=== PATIENT | female | born 1985 | race Caucasian/White ===

== ENCOUNTER → 2017-12-19 | Outpatient (CLI) | payer OTHER, MEDICAID ==
[~2017-12-19] MED LIST: AMITRIPTYLINE H10 M3 PO; AMOXICILLIN 50500 MG PO; AMOXICILLIN500 M1 PO; BACTRIM DS TAB1 EACH PO; CELEXA PO; CLEOCIN HCL150 MG PO; CLONAZEPAM 1 MG1 M1 PO; COLACE 100 MG100 MG PO; DESYREL50 MG; HYDROCODONE-AP1 EAC6 PO; IBUPROFEN 800800 M1 PO; NOHOMEMEDICATIONS; NORCO 5-325 TA1 EACH PO; PHENAZOPYRIDIN200 MG PO; PRILOSEC 20 MG20 MG PO; PROMETHAZINE-C120 ML PO; TRAMADOL 50 MG50 MG PO; TRAZODONE 150150 M1 PO; ULTRAM 50MG TAB50 MG PO; WELLBUTRIN 100100 MG; WELLBUTRIN100 MG PO; XANAX 0.5 MG0.5 M1; ZOLOFT25 MG PO
== END ==
LOC: M.ULTRA 11:30
DX: Q51.3 Bicornate uterus (principal); N63.10 Unspecified lump in the right breast, unspecified quadrant; N60.01 Solitary cyst of right breast

== ENCOUNTER 2018-09-03 12:14 | Emergency (ER) | payer OTHER, MEDICAID ==
[~2018-09-03] VITALS: Ht 162.6 cm; Wt 78.5 kg
[2018-09-03 12:16] VITALS: BP 113/73
[2018-09-03] MEDS ORDERED: WELLBUTRIN 100100 MG PO (12:21)
[2018-09-03] MEDS ORDERED: PRAZOSIN 1 MG CA1 M1 PO (12:21)
[2018-09-03] MEDS ORDERED: ZOLOFT25 MG PO (12:22)
[2018-09-03] MEDS ORDERED: PRILOSEC 20 MG20 MG PO (12:22)
[2018-09-03] MEDS ORDERED: SEROQUEL 25 MG25 M1 PO (12:22)
[2018-09-03] MEDS ORDERED: HYDROCODONE-AP1 EAC6 PO (12:36)
[2018-09-03] MEDS ORDERED: PENICILLIN V P500 MG PO (12:36)
== END 2018-09-03 12:46 | disposition home or self-care (01) ==
LOC: M.ERS 12:14
DX: K08.89 Other specified disorders of teeth and supporting structures (principal); F17.210 Nicotine dependence, cigarettes, uncomplicated; Z88.6 Allergy status to analgesic agent; Z98.890 Other specified postprocedural states

== ENCOUNTER 2018-09-10 01:01 | Emergency (ER) | payer OTHER, MEDICAID ==
[~2018-09-10] VITALS: Ht 162.6 cm; Wt 65.8 kg
[~2018-09-10 01:01] MED LIST changes: +PENICILLIN V P500 MG PO; +PRAZOSIN 1 MG CA1 M1 PO; +SEROQUEL 25 MG25 M1 PO; +WELLBUTRIN 100100 MG PO
[2018-09-10] MEDS ORDERED: NORCO 5-325 TA1 EACH PO (01:48)
[2018-09-10 02:25] VITALS: BP 123/80
== END 2018-09-10 02:25 | disposition home or self-care (01) ==
LOC: M.ERS 01:01
DX: K08.89 Other specified disorders of teeth and supporting structures (principal)

== ENCOUNTER 2018-10-20 20:34 | Emergency (ER) | payer OTHER ==
[~2018-10-20] VITALS: Ht 162.6 cm; Wt 66.8 kg
[2018-10-20 21:32] LABS: AMP/METHAMP POSITIVE (Negative); BARBITURATES Negative (Negative); BENZODIAZEPINES Negative (Negative); COCAINE Negative (Negative); METHADONE Negative (Negative); OPIATES POSITIVE (Negative); PCP Negative (Negative); THC Negative (Negative)
[2018-10-20 21:32] LABS: ABSOLUTE BASOPHILS 0.1 thou/uL (0.0-0.2); ABSOLUTE EOSINOPHILS 0.2 thou/uL (0.0-0.7); ABSOLUTE LYMPHOCYTES 2.7 thou/uL (0.8-5.3); ABSOLUTE MONOCYTES 0.6 thou/uL (0.0-1.2); ABSOLUTE NEUTROPHILS 6.6 thou/uL (1.6-8.1); BASOPHILS 0.8 %; EOSINOPHILS 2.1 %; HEMATOCRIT 41.3 % (37.0-47.0); HEMOGLOBIN 14.2 gm/dL (12.0-15.0); LYMPHOCYTES 26.3 %; MCH 31.9 pg (26.0-34.0); MCHC 34.3 g/dL (28.0-37.0); MCV 93.1 fL (80.0-100.0); MONOCYTES 5.6 %; MPV 7.5 fl. (7.2-11.1); NUCLEATED RBCS 0 /100WBC; PLATELET COUNT* 398 thou/uL (150-400); POLYS 65.2 %; RBC 4.43 mil/uL (4.20-5.00); RDW-CV 13.2 % (10.5-14.5); WBC 10.1 thou/uL (4.0-11.0)
[2018-10-20 21:36] LABS: URINE BLOOD 3+ (Negative); URINE CLARITY SL CLOUDY; URINE COLOR RED; URINE GLUCOSE-RANDOM NEGATIVE (Negative); URINE KETONES 2+ (Negative); URINE NITRITE-REFLEX NEGATIVE (Negative); URINE PROTEIN 2+ (Negative); URINE SPECIFIC GRAVITY 1.025 (1.005-1.030); URINE UROBILINOGEN 0.2 E.U./dl (0.2-1.0)
[2018-10-20 21:39] LABS: CALCIUM 9.5 mg/dL (8.5-10.1); CREATININE 0.9 mg/dL (0.6-1.3); POTASSIUM 3.5 mmol/L (3.5-5.1)
[2018-10-20 21:41] LABS: URINE BILIRUBIN 1+ (Negative); URINE LEUKOCYTES-REFLEX 2+ (Negative)
[2018-10-20 21:42] LABS: ICTOTEST (BILI CONFIRMATORY) Negative (Negative)
[2018-10-20 21:44] LABS: ALBUMIN 4.2 g/dL (3.4-5.0); TOTAL BILIRUBIN 0.6 mg/dL (<0.1-1.0); TOTAL PROTEIN 7.6 g/dL (6.4-8.2)
[2018-10-20 21:48] LABS: SALICYLATE 4.6 mg/dL (2.8-20.0)
[2018-10-20 21:50] LABS: ACETAMINOPHEN < 2 ug/mL (10-30)
[2018-10-20 21:51] LABS: CASTS None Seen /LPF (None Seen); SQUAMOUS 4-10 Moderate /LPF (0-3)
[2018-10-20 21:52] LABS: BACTERIA-REFLEX 1-9 Few /HPF (None Seen); URINE RBC >20 Many /HPF (0-2); URINE WBC-REFLEX 6-15 Few /HPF (0-5)
[2018-10-20 21:53] LABS: CRYSTALS None Seen /LPF (None Seen)
[2018-10-21 00:20] VITALS: BP 129/82
== END 2018-10-21 00:20 | disposition home or self-care (01) ==
LOC: M.ERS 20:34
PROVIDERS: Physician Assistant
DX: F41.9 Anxiety disorder, unspecified (principal); F15.90 Other stimulant use, unspecified, uncomplicated; F29 Unspecified psychosis not due to a substance or known physiological condition; F22 Delusional disorders; F31.9 Bipolar disorder, unspecified; Z98.890 Other specified postprocedural states; F17.210 Nicotine dependence, cigarettes, uncomplicated; Z88.6 Allergy status to analgesic agent; Z88.8 Allergy status to other drugs, medicaments and biological substances; Z79.899 Other long term (current) drug therapy

== ENCOUNTER 2018-11-03 20:46 | Emergency (ER) | payer OTHER ==
[~2018-11-03] VITALS: Ht 162.6 cm; Wt 61.2 kg
[2018-11-03] MEDS ORDERED: FLAGYL500 M1 PO (21:17)
[2018-11-03 21:22] LABS: ABSOLUTE BASOPHILS 0.1 thou/uL (0.0-0.2); ABSOLUTE EOSINOPHILS 0.2 thou/uL (0.0-0.7); ABSOLUTE LYMPHOCYTES 2.4 thou/uL (0.8-5.3); ABSOLUTE MONOCYTES 0.5 thou/uL (0.0-1.2); ABSOLUTE NEUTROPHILS 5.2 thou/uL (1.6-8.1); BASOPHILS 1.1 %; HEMATOCRIT 39.2 % (37.0-47.0); HEMOGLOBIN 13.5 gm/dL (12.0-15.0); LYMPHOCYTES 29.3 %; MCH 31.7 pg (26.0-34.0); MCHC 34.5 g/dL (28.0-37.0); MCV 91.7 fL (80.0-100.0); MONOCYTES 5.5 %; MPV 7.2 fl. (7.2-11.1); NUCLEATED RBCS 0 /100WBC; PLATELET COUNT* 430 thou/uL (150-400); POLYS 62.1 %; RBC 4.28 mil/uL (4.20-5.00); RDW-CV 13.2 % (10.5-14.5); WBC 8.3 thou/uL (4.0-11.0)
[2018-11-03 21:35] LABS: URINE BILIRUBIN NEGATIVE (Negative); URINE BLOOD 3+ (Negative); URINE CLARITY CLEAR; URINE COLOR YELLOW; URINE GLUCOSE-RANDOM NEGATIVE (Negative); URINE KETONES NEGATIVE (Negative); URINE LEUKOCYTES-REFLEX NEGATIVE (Negative); URINE NITRITE-REFLEX NEGATIVE (Negative); URINE PROTEIN TRACE (Negative); URINE SPECIFIC GRAVITY 1.025 (1.005-1.030); URINE UROBILINOGEN 0.2 E.U./dl (0.2-1.0)
[2018-11-03 21:41] LABS: CALCIUM 8.8 mg/dL (8.5-10.1); CREATININE 0.8 mg/dL (0.6-1.3); POTASSIUM 3.6 mmol/L (3.5-5.1)
[2018-11-03 21:45] LABS: AMP/METHAMP POSITIVE (Negative); BARBITURATES Negative (Negative); BENZODIAZEPINES POSITIVE (Negative); COCAINE Negative (Negative); METHADONE Negative (Negative); OPIATES Negative (Negative); PCP Negative (Negative); THC Negative (Negative)
[2018-11-03 21:46] LABS: ALBUMIN 3.6 g/dL (3.4-5.0); TOTAL BILIRUBIN 0.2 mg/dL (<0.1-1.0); TOTAL PROTEIN 6.9 g/dL (6.4-8.2)
[2018-11-03 21:47] LABS: SALICYLATE 5.1 mg/dL (2.8-20.0)
[2018-11-03 21:48] LABS: ACETAMINOPHEN < 2 ug/mL (10-30); ALCOHOL < 10 mg/dL (<10)
[2018-11-03 21:55] LABS: BACTERIA-REFLEX None Seen /HPF (None Seen); SQUAMOUS >10 Many /LPF (0-3); URINE RBC 3-10 Few /HPF (0-2); URINE WBC-REFLEX None Seen /HPF (0-5)
[2018-11-03 21:56] LABS: CRYSTALS None Seen /LPF (None Seen)
[2018-11-03 22:35] VITALS: BP 144/86
== END 2018-11-03 22:57 | disposition home or self-care (01) ==
LOC: M.ERS 20:46
PROVIDERS: Family Medicine
DX: F19.10 Other psychoactive substance abuse, uncomplicated (principal); F31.9 Bipolar disorder, unspecified; F41.9 Anxiety disorder, unspecified; Z98.890 Other specified postprocedural states; F17.210 Nicotine dependence, cigarettes, uncomplicated; Z88.8 Allergy status to other drugs, medicaments and biological substances

== ENCOUNTER 2019-11-10 00:56 | Emergency (ER) | payer OTHER ==
[~2019-11-10] VITALS: Ht 160 cm; Wt 68.0 kg
[~2019-11-10 00:56] MED LIST changes: +FLAGYL500 M1 PO
[2019-11-10 05:10] VITALS: BP 00/000
== END 2019-11-10 05:13 | disposition home or self-care (01) ==
LOC: M.ERS 00:56
DX: F15.10 Other stimulant abuse, uncomplicated (principal); F31.9 Bipolar disorder, unspecified; F41.9 Anxiety disorder, unspecified; F17.210 Nicotine dependence, cigarettes, uncomplicated; Z98.890 Other specified postprocedural states; Z88.6 Allergy status to analgesic agent; Z88.8 Allergy status to other drugs, medicaments and biological substances

== ENCOUNTER 2020-05-25 10:17 | Emergency (ER) | payer MEDICAID ==
[~2020-05-25] VITALS: Ht 165.1 cm; Wt 74.8 kg
[2020-05-25 11:15] LABS: URINE BILIRUBIN NEGATIVE (Negative); URINE BLOOD 2+ (Negative); URINE CLARITY CLEAR; URINE COLOR YELLOW; URINE GLUCOSE-RANDOM NEGATIVE (Negative); URINE KETONES NEGATIVE (Negative); URINE LEUKOCYTES-REFLEX NEGATIVE (Negative); URINE NITRITE-REFLEX NEGATIVE (Negative); URINE PROTEIN 1+ (Negative); URINE SPECIFIC GRAVITY >= 1.030 (1.005-1.030); URINE UROBILINOGEN 0.2 E.U./dl (0.2-1.0)
[2020-05-25 11:34] LABS: BACTERIA-REFLEX 1-9 Few /HPF (None Seen); CASTS None Seen /LPF (None Seen); CRYSTALS None Seen /LPF (None Seen); MUCUS >6 Heavy strn/LPF (None Seen); SQUAMOUS 4-10 Moderate /LPF (0-3); URINE WBC-REFLEX 0-5 Rare /HPF (0-5)
[2020-05-25 11:34] LABS: ABSOLUTE BASOPHILS 0.1 thou/uL (0.0-0.2); ABSOLUTE EOSINOPHILS 0.3 thou/uL (0.0-0.7); ABSOLUTE LYMPHOCYTES 2.1 thou/uL (0.8-5.3); ABSOLUTE MONOCYTES 0.4 thou/uL (0.0-1.2); ABSOLUTE NEUTROPHILS 3.9 thou/uL (1.6-8.1); BASOPHILS 0.8 %; EOSINOPHILS 4.2 %; HEMATOCRIT 37.2 % (37.0-47.0); LYMPHOCYTES 31.6 %; MCH 31.4 pg (26.0-34.0); MCHC 34.8 g/dL (28.0-37.0); MCV 90.1 fL (80.0-100.0); MONOCYTES 5.4 %; NUCLEATED RBCS 0 /100WBC; PLATELET COUNT* 379 thou/uL (150-400); RBC 4.13 mil/uL (4.20-5.00); RDW-CV 14.9 % (10.5-14.5); WBC 6.7 thou/uL (4.0-11.0)
[2020-05-25 11:35] LABS: AMP/METHAMP POSITIVE (Negative); BARBITURATES Negative (Negative); BENZODIAZEPINES POSITIVE (Negative); COCAINE Negative (Negative); METHADONE Negative (Negative); OPIATES Negative (Negative); PCP POSITIVE (Negative); THC POSITIVE (Negative)
[2020-05-25 11:45] LABS: ALBUMIN 3.4 g/dL (3.4-5.0); TOTAL BILIRUBIN 0.3 mg/dL (<0.1-1.0); TOTAL PROTEIN 6.7 g/dL (6.4-8.2)
[2020-05-25 11:46] LABS: POTASSIUM 2.8 mmol/L (3.5-5.1)
[2020-05-25] MEDS ORDERED: SUPRAX400 M1 PO (12:13)
[2020-05-25] MEDS ORDERED: AZITHROMYCIN250 MG PO (12:13)
[2020-05-25] MEDS ORDERED: KLOR-CON M2020 MEQ PO (12:13)
[2020-05-25 12:35] VITALS: BP 121/77
== END 2020-05-25 12:35 | disposition home or self-care (01) ==
LOC: M.ERS 10:17
PROVIDERS: Emergency Medicine Emergency Medical Services
DX: E87.6 Hypokalemia (principal); M25.511 Pain in right shoulder; F17.210 Nicotine dependence, cigarettes, uncomplicated; Z98.890 Other specified postprocedural states; Z88.6 Allergy status to analgesic agent; Z79.899 Other long term (current) drug therapy

== ENCOUNTER 2020-05-27 15:08 | Emergency (ER) | payer MEDICAID ==
[~2020-05-27] VITALS: Ht 162.6 cm; Wt 68.0 kg
[~2020-05-27 15:08] MED LIST changes: +AZITHROMYCIN250 MG PO; +KLOR-CON M2020 MEQ PO; +SUPRAX400 M1 PO
[2020-05-27 16:30] VITALS: BP 129/79
== END 2020-05-27 16:31 | disposition home or self-care (01) ==
LOC: M.ERS 15:08
DX: M25.511 Pain in right shoulder (principal); M79.675 Pain in left toe(s); M79.674 Pain in right toe(s); F12.90 Cannabis use, unspecified, uncomplicated; F17.210 Nicotine dependence, cigarettes, uncomplicated; F15.90 Other stimulant use, unspecified, uncomplicated; Z76.5 Malingerer [conscious simulation]; Z88.6 Allergy status to analgesic agent; Z79.899 Other long term (current) drug therapy; Z98.890 Other specified postprocedural states

== ENCOUNTER 2020-06-11 21:50 | Emergency (ER) | payer MEDICAID ==
[~2020-06-11] VITALS: Ht 162.6 cm; Wt 74.8 kg
[2020-06-11] MEDS ORDERED: CYMBALTA60 MG PO (22:15)
[2020-06-11] MEDS ORDERED: CLONAZEPAM 0.50.5 M1 PO (22:15)
[2020-06-11] MEDS ORDERED: WELLBUTRIN XL300 MG PO (22:15)
[2020-06-11 23:22] LABS: URINE BILIRUBIN NEGATIVE (Negative); URINE BLOOD 3+ (Negative); URINE COLOR YELLOW; URINE GLUCOSE-RANDOM NEGATIVE (Negative); URINE KETONES NEGATIVE (Negative); URINE LEUKOCYTES NEGATIVE (Negative); URINE NITRITE NEGATIVE (Negative); URINE PROTEIN TRACE (Negative); URINE SPECIFIC GRAVITY 1.025 (1.005-1.030); URINE UROBILINOGEN 0.2 E.U./dl (0.2-1.0)
[2020-06-11 23:23] LABS: URINE CLARITY SL CLOUDY
[2020-06-11 23:28] LABS: AMP/METHAMP POSITIVE (Negative); BARBITURATES Negative (Negative); BENZODIAZEPINES Negative (Negative); COCAINE Negative (Negative); METHADONE Negative (Negative); OPIATES Negative (Negative); PCP Negative (Negative); THC Negative (Negative)
[2020-06-11 23:49] LABS: AMORPHOUS URATES Few /LPF (None Seen); BACTERIA >30 Many /HPF (None Seen); CASTS None Seen /LPF (None Seen); MUCUS 4-6 Moderate strn/LPF (None Seen); SQUAMOUS 4-10 Moderate /LPF (0-3); URINE WBC 0-5 Rare /HPF (0-5)
[2020-06-11 23:50] LABS: ABSOLUTE BASOPHILS 0.1 thou/uL (0.0-0.2); ABSOLUTE EOSINOPHILS 0.3 thou/uL (0.0-0.7); ABSOLUTE LYMPHOCYTES 2.8 thou/uL (0.8-5.3); ABSOLUTE MONOCYTES 0.6 thou/uL (0.0-1.2); ABSOLUTE NEUTROPHILS 4.9 thou/uL (1.6-8.1); BASOPHILS 0.8 %; EOSINOPHILS 3.2 %; HEMATOCRIT 40.4 % (37.0-47.0); LYMPHOCYTES 32.4 %; MCH 31.6 pg (26.0-34.0); MCHC 34.6 g/dL (28.0-37.0); MCV 91.4 fL (80.0-100.0); MONOCYTES 7.1 %; NUCLEATED RBCS 0 /100WBC; PLATELET COUNT* 371 thou/uL (150-400); POLYS 56.5 %; RBC 4.42 mil/uL (4.20-5.00); RDW-CV 15.2 % (10.5-14.5); WBC 8.7 thou/uL (4.0-11.0)
[2020-06-11 23:52] LABS: CALCIUM 8.8 mg/dL (8.5-10.1); CREATININE 0.8 mg/dL (0.6-1.3); POTASSIUM 3.4 mmol/L (3.5-5.1)
[2020-06-11 23:56] LABS: ALBUMIN 3.2 g/dL (3.4-5.0); TOTAL BILIRUBIN 0.1 mg/dL (<0.1-1.0); TOTAL PROTEIN 6.7 g/dL (6.4-8.2)
[2020-06-12 00:58] VITALS: BP 124/81
== END 2020-06-12 00:58 | disposition home or self-care (01) ==
LOC: M.ERS 21:50
PROVIDERS: Personal Emergency Response Attendant
DX: F41.9 Anxiety disorder, unspecified (principal); F17.210 Nicotine dependence, cigarettes, uncomplicated; Z88.6 Allergy status to analgesic agent; Z88.8 Allergy status to other drugs, medicaments and biological substances; Z98.890 Other specified postprocedural states; Z79.899 Other long term (current) drug therapy

== ENCOUNTER 2020-06-12 02:34 | Emergency (ER) | payer MEDICAID ==
[~2020-06-12] VITALS: Ht 162.6 cm; Wt 74.8 kg
[~2020-06-12 02:34] MED LIST changes: +CLONAZEPAM 0.50.5 M1 PO; +CYMBALTA60 MG PO; +WELLBUTRIN XL300 MG PO
[2020-06-12 06:00] VITALS: BP 119/67
== END 2020-06-12 06:00 ==
LOC: M.ERS 02:34
DX: F15.10 Other stimulant abuse, uncomplicated (principal); F41.9 Anxiety disorder, unspecified; F32.9 Major depressive disorder, single episode, unspecified; Z20.828 Contact with and (suspected) exposure to other viral communicable diseases; Z98.890 Other specified postprocedural states; F17.210 Nicotine dependence, cigarettes, uncomplicated; Z88.6 Allergy status to analgesic agent; Z88.8 Allergy status to other drugs, medicaments and biological substances